=== PATIENT | male | born 1950 | race Caucasian/White ===

== ENCOUNTER 2018-03-30 23:55 | Emergency (ER) | payer MEDICARE, MEDICAID ==
[~2018-03-30] VITALS: Ht 172.7 cm; Wt 72.6 kg
[2018-03-31] VITALS: BP 120/70
--- NOTE | 2018-03-31 | NUR ---
PATIENT BIB WHEELCHAIR TO ER BED 9.
--- NOTE | 2018-03-31 00:05 | NUR ---
APATIENT PRESENTS TO ED WITH C/O ABD PAIN X 1 WEEK. ABD FLAT/ROUND SOFT. BREATH SOUNDS CLEAR BILATERALLY. HEART RATE EVEN/REGULAR. PT AA0X4, USES WHEELCHAIR. PT HAS POOR SKIN TURGOR, TIGHT AND HARDENED. PATIENT POSITIONED FOR COMFORT; HOB ELEVATED; BEDRAILS UP X2; BED DOWN. ER MD MADE AWARE OF PT STATUS. MED HX: HTN
[2018-03-31] MEDS ORDERED: MORPHINE SULFATE 2 MG/ML SYR IVP ONE (00:35)
[2018-03-31] MEDS ORDERED: ONDANSETRON 4 MG/2 ML VIAL IVP ONE (00:35)
[2018-03-31 01:00] LABS: APPEARANCE,URINE CLEAR (CLEAR); BILIRUBIN,URINE NEGATIVE (NEGATIVE); BLOOD, URINE 3+ (NEGATIVE); COLOR,URINE YELLOW (YELLOW); LEUKOCYTE ESTERASE ,URINE NEGATIVE (NEGATIVE); NITRITE, URINE NEGATIVE (NEGATIVE); UGLUCOSE NEGATIVE (NEGATIVE)
--- NOTE | 2018-03-31 01:11 | NUR ---
PER FLOR RED TO GIVE MEDICATION IM. PT HAS POOR PIV ACCESS.
[2018-03-31 01:16] LABS: ANION GAP 10.7 (8-16); CARBON DIOXIDE 27.3 mmol/L (21-32); CREATININE 1.1 mg/dL (0.7-1.3)
[2018-03-31 01:18] LABS: TOTAL BILIRUBIN 0.7 mg/dL (0.0-1.0)
[2018-03-31 01:19] LABS: ALBUMIN 2.8 g/dL (3.4-5.0)
[2018-03-31 01:34] LABS: HEMATOCRIT 41.8 % (36-52); MEAN CORPUSCULAR HEMOGLOBIN 32 pg (27-31); MEAN CORPUSCULAR HGB CONC 34 g/dL (33-37); MEAN CORPUSCULAR VOLUME 96.2 fL (80-94); PLATELET COUNT (AUTO) 170 K/uL (140-450); RED BLOOD CELL COUNT(AUTO) 4.34 MIL/uL (4.20-6.10); RED CELL DISTRIBUTION WIDTH 13.9 % (11.6-13.7); WHITE BLOOD COUNT (AUTO) 4.9 K/uL (4.8-10.8)
[2018-03-31 01:35] LABS: BASOPHILS # (AUTO) 0.2 K/uL (0.00-0.22); BASOPHILS % (AUTO) 4.7 % (0.0-2.0); EOSINOPHILS # (AUTO) 0.3 K/uL (0-0.4); EOSINOPHILS % (AUTO) 6.1 % (0.0-4.0); LYMPHOCYTES # (AUTO) 1.7 K/uL (2.0-11.5); MONOCYTES # (AUTO) 0.5 K/uL (0.8-1.0); MONOCYTES % (AUTO) 9.7 % (1.7-9.3); NEUTROPHILS # (AUTO) 2.2 K/uL (1.8-7.7); NEUTROPHILS % (AUTO) 45.5 % (42.2-75.2)
[2018-03-31 01:41] LABS: HYALINE CASTS, URINE 0-10 /LPF (None Seen); RBC,URINE 11-20 (MOD) /HPF (0-5); WBC,URINE 0-5 (RARE) /HPF (0-5)
--- NOTE | 2018-03-31 02:20 | NUR ---
Patient discharged with v/s stable. Written and verbal after care instructions given and explained. Patient alert, oriented and verbalized understanding of instructions. Wheel Chair Assisted with to home. All questions addressed prior to discharge. ID band removed. Patient advised to follow up with PMD. Rx of ULTRAM, MIRALAX AND REGLAN given. Patient educated on indication of medication including possible reaction and side effects. Opportunity to ask questions provided and answered.
== END 2018-03-31 02:20 | disposition home or self-care (01) ==
LOC: MED 23:55
DX: K59.00 Constipation, unspecified (principal); K80.80 Other cholelithiasis without obstruction; M54.5 Low back pain
CPT/HCPCS: 36415; 74176; 80053; 81001; 83690; 85025; 96372; 99285; J2270; J2405; 96374

== ENCOUNTER 2018-04-26 22:42 | Inpatient (IN) | payer MEDICAID, MEDICARE ==
[~2018-04-26] VITALS: Ht 172.7 cm; Wt 68.0 kg
[2018-04-26 22:48] VITALS: BP 100/63
--- NOTE | 2018-04-26 22:48 | NUR ---
pt ambulated to bed with vss.
--- NOTE | 2018-04-26 22:54 | NUR ---
PT TAKEN TO BED 8
--- NOTE | 2018-04-26 22:55 | NUR ---
ASSUMED CARE OF PT AT THIS TIME. C/O WORSENING CHRONIC, ALL OVER BACK PAIN X 1 WEEK, W/ WEAKNESS AND DECREASED PO INTAKE. NO TRAUMA. AAOX4 WITH EVEN AND STEADY GAIT; PATIENT STATES PAIN OF 10/10; VSS; PATIENT POSITIONED FOR COMFORT; HOB ELEVATED; BEDRAILS UP X2; BED DOWN. ER MD MADE AWARE OF PT STATUS. WILL CONTINUE TO MONITOR.
--- NOTE | 2018-04-26 23:08 | NUR ---
Dr. Collier evaluating patient at bedside.
[2018-04-26] MEDS ORDERED: NACL 0.9% 1,000 ML IV ONE (23:15)
[2018-04-26] MEDS ORDERED: ONDANSETRON 4 MG/2 ML VIAL IVP ONE (23:20)
[2018-04-27 00:09] LABS: HEMATOCRIT 48.8 % (36-52); HEMOGLOBIN 16.3 g/dL (12.0-18.0); MEAN CORPUSCULAR HEMOGLOBIN 32 pg (27-31); MEAN CORPUSCULAR HGB CONC 33 g/dL (33-37); MEAN CORPUSCULAR VOLUME 96.1 fL (80-94); RED BLOOD CELL COUNT(AUTO) 5.08 MIL/uL (4.20-6.10); RED CELL DISTRIBUTION WIDTH 14.5 % (11.6-13.7)
[2018-04-27 00:15] LABS: ANION GAP 12.3 (8-16); CREATININE 1.3 mg/dL (0.7-1.3); POTASSIUM 3.3 mmol/L (3.5-5.1)
[2018-04-27] MEDS ORDERED: ONDANSETRON 4 MG/2 ML VIAL IM ONE (00:15)
[2018-04-27 00:22] LABS: ALBUMIN 3.2 g/dL (3.4-5.0); TOTAL BILIRUBIN 1.4 mg/dL (0.0-1.0)
[2018-04-27 00:25] LABS: PLATELET COUNT (AUTO) 98 K/uL (140-450); WHITE BLOOD COUNT (AUTO) 25.7 K/uL (4.8-10.8)
[2018-04-27 00:28] LABS: LYMPHOCYTES % (MANUAL) 5 % (20-46); METAMYELOCYTES % 2 % (0-0); MYELOCYTES % 1 % (0-0)
[2018-04-27 00:32] LABS: PROTHROMBIN TIME 13.8 secs (10.8-13.4)
[2018-04-27] MEDS ORDERED: fentaNYL 0.05 MG/ML VIAL IM ONE (00:40)
[2018-04-27] MEDS: NACL 0.9% 1,000 ML IV SCH ×2 (01:07→14:12)
[2018-04-27] MEDS ORDERED: ZOLPIDEM 5 MG TAB PO PRN (01:10)
[2018-04-27] MEDS ORDERED: LEVOFLOXACIN 500 MG TAB PO ONE (01:10)
[2018-04-27] MEDS ORDERED: ACETAMINOPHEN 325 MG TAB PO PRN (01:10)
[2018-04-27 01:40] LABS: FREE T4 (FREE THYROXINE) 1.39 ng/dL (0.76-1.46); MAGNESIUM 1.4 mg/dL (1.8-2.4); PHOSPHORUS 2.6 mg/dL (2.5-4.9); THYROID STIMULATING HORMONE 2.05 uIU/mL (0.34-3.74)
--- NOTE | 2018-04-27 01:40 | NUR ---
Patient will be admitted to care of [facility]. Admitted to TELE. Will go to room 120A. Belongings list completed. Report to MAUDE OZUNA.
--- NOTE | 2018-04-27 02:00 | NUR ---
RECEIVED FROM ER PER SAMANTHA AWAKE AND ALERT. ABLE TO VERBALIZE SIMPLE NEEDS . DX. OF LEUKOCYTOSIS. CAN MOVE ALL EXTREMITIES BUT STATED HE IS VERY WEAK. USES WHEELCHAIR IN GOING PLACES. LIVES WITH SON [place] . PT. STATED HE HAS THIS CHRONIC BACK PAIN EVER SINCE HE HAD RIB INFECTION. SKIN INTACT. NO EDEMA NOTED. AFEBRILE. TELEMETRY MONITORING. CARE PLANS FOR THE NIGHT DISCUSSED WITH HIM. CALL LIGHT AT BEDSIDE AND ORIENTED PT. TO IT'S USE. RAPID RESPONSE EXPLAINED TO PT. HISTORY OF HEROIN USE .
[2018-04-27 02:14] VITALS: BP 110/72
--- NOTE | 2018-04-27 02:33 | NUR ---
LACTIC ACID 2.8 REPORTED CRITICAL VALUE BY MANAGER INSPECTION TO CHARGE NURSE . REPORTED BY CHARGE NURSE TO RESIDENT MD NAYAK. NO FURTHER ORDERS GIVEN.
--- NOTE | 2018-04-27 02:42 | NUR ---
PT. HAS NO IVF SITE AT THIS TIME RT ER STAFF UNABLE TO INSERT RT HX. NEEDLE PRICKS FROM CONSTANT USE OF HEROIN INJECTABLE. VEINS SCLEROSED. FOR PICC LINE IN A.M. PER ER REPORT.
[2018-04-27] MEDS ORDERED: MAGNESIUM OXIDE 400 MG TAB PO SCH (03:30)
[2018-04-27] MEDS ORDERED: POTASSIUM CHLORIDE 10 MEQ TABER PO SCH (03:30)
--- NOTE | 2018-04-27 04:10 | NUR ---
PT. SLEEPING WELL. USES URINAL TO URINATE. CALL LIGHT WITH IN REACH. TELEMETRY MONITORING.
[2018-04-27 04:29] LABS: HEMOGLOBIN 14.8 g/dL (12.0-18.0); MEAN CORPUSCULAR HEMOGLOBIN 32 pg (27-31); MEAN CORPUSCULAR HGB CONC 34 g/dL (33-37); MEAN CORPUSCULAR VOLUME 95.6 fL (80-94); PLATELET COUNT (AUTO) 106 K/uL (140-450); RED CELL DISTRIBUTION WIDTH 14.1 % (11.6-13.7); WHITE BLOOD COUNT (AUTO) 24.4 K/uL (4.8-10.8)
[2018-04-27 04:44] LABS: CARBON DIOXIDE 25.8 mmol/L (21-32); CREATININE 1.2 mg/dL (0.7-1.3); POTASSIUM 3.8 mmol/L (3.5-5.1)
[2018-04-27 04:50] LABS: CHOL/HDL RATIO 2.2 (1-4.5)
--- NOTE | 2018-04-27 05:50 | NUR ---
URINE SPECIMEN SENT TO LAB FOR DRUG TEST AND URINE PROFILE.
[2018-04-27 06:16] LABS: LYMPHOCYTES % (MANUAL) 8 % (20-46); MONOCYTES % (MANUAL) 5 % (5-12)
--- NOTE | 2018-04-27 07:15 | NUR ---
RECEIVED PATIENT REPORT. PATIENT ASLEEP BUT AROUSABLE. NO S/S OF DISTRESS NOTED. PATIENT ON TELE MONITORING. BED LOWERED WITH CALL LIGHT WITHIN REACH. WILL CONTINUE TO MONITOR
--- NOTE | 2018-04-27 07:33 | NUR ---
PT. ENDORSED TO THE NEXT RN FOR CONTINUITY OF CARE. SLEEPING. WAKES UP EASILY WHEN CALLED BY NAME. CALL LIGHT WITH IN REACH AT ALL TIMES. NO SOB. FOR PICC LINE INSERTION TODAY. ABSENCE MANAGEMENT CONSULTANT MADE AWARE.
[2018-04-27 07:38] LABS: BILIRUBIN,URINE NEGATIVE (NEGATIVE); COLOR,URINE ORANGE (YELLOW); LEUKOCYTE ESTERASE ,URINE NEGATIVE (NEGATIVE); NITRITE, URINE NEGATIVE (NEGATIVE); PH,URINE 5.5 (5.0-9.0); UGLUCOSE NEGATIVE (NEGATIVE)
[2018-04-27 08:00] VITALS: BP 100/65
[2018-04-27 08:02] LABS: APPEARANCE,URINE SLIGHTLY HAZY (CLEAR)
[2018-04-27 08:03] LABS: RBC,URINE 3-10 (FEW) /HPF (0-5); WBC,URINE 0-5 (RARE) /HPF (0-5)
[2018-04-27 08:04] LABS: BLOOD, URINE 2+ (NEGATIVE)
[2018-04-27 08:16] LABS: BARBITURATE, URINE NEG. ng/ml (NEG <=200); BENZODIAZEPINE, URINE NEG. ng/mL (NEG <=200); CANNABINOID, URINE NEG. ng/mL (NEG <=50); COCAINE, URINE NEG. ng/mL (NEG <=300); OPIATE, URINE POS. ng/mL (NEG <=2000); PHENCYCLIDINE SCREEN,URINE NEG. ng/mL (NEG <=25)
[2018-04-27] MEDS ORDERED: VANCOMYCIN PER PHARMACY MC PRN (08:30)
--- NOTE | 2018-04-27 08:30 | NUR ---
ASSISTED PATIENT TO THE BATHROOM. PATIENT WHEELED IN HIS WHEELCHAIR. PATIENT HAD A BM. STOOL WAS LOOSE AND MODERATE IN AMOUNT. PATIENT ASSISTED BACK TO BED. NO S/S OF DISTRESS NOTED
--- NOTE | 2018-04-27 08:41 | NUR ---
PATIENT HAS BEEN SCREENED AND CATEGORIZED HIGH NUTRITION RISK. PATIENT WILL BE SEEN WITHIN 1-2 DAYS OF ADMISSION. 04/27/18 04/28/[address]
[2018-04-27] MEDS: DOCUSATE SODIUM 100 MG GELCAP PO SCH ×2 (09:00→20:43)
[2018-04-27] MEDS ORDERED: SULFAMETH/TRIMETH 400/80MG 1 TAB PO SCH (09:00)
[2018-04-27] MEDS: LACTOBACILLUS RHAMNOSUS GG 1 EACH CAP PO SCH (09:07)
[2018-04-27] MEDS ORDERED: VANCOMYCIN 750 MG in DEXTROSE 5% 250 ML IV SCH (11:00)
[2018-04-27 12:00] VITALS: BP 95/66
--- NOTE | 2018-04-27 13:29 | NUR ---
CM NOTE INITIAL REVIEW FAXED TO [facility] [phone] PH# [phone] AND PREFERRED [facility] [phone] PH# [phone] OPT 1
[2018-04-27] MEDS: VANCOMYCIN 750 MG in DEXTROSE 5% 250 ML IV SCH (14:12)
--- NOTE | 2018-04-27 14:30 | NUR ---
PATIENT ASLEEP IN BED. NO S/S OF DISTRESS NOTED
--- NOTE | 2018-04-27 15:16 | NUR ---
04/27/18 RD INITIAL ASSESSMENT COMPLETED PLEASE REFER TO NUTRITION ASSESSMENT UNDER CARE ACTIVITY FOR ESTIMATED NUTRITIONAL NEEDS. 1. CONTINUE REGULAR DIET TOLERATED. 2. RECOMMEND ENSURE CLEAR TID. 3. NUTRITION EDUCATION PROVIDED TO PT ON HIGH CALORIE/FAT DIET. 4. RD TO FOLLOW-UP 2-3 DAYS, HIGH RISK. RADHA CRAWFORD RD
[2018-04-27 16:00] VITALS: BP 102/63
--- NOTE | 2018-04-27 16:02 | NUR ---
PATIENT ASLEEP IN BED. NO S/S OF DISTRESS NOTED
--- NOTE | 2018-04-27 19:20 | NUR ---
PATIENT REPORT GIVEN AT BEDSIDE. PATIENT ENDORSED IN STABLE CONDITION
--- NOTE | 2018-04-27 19:20 | NUR ---
RECEIVED BEDSIDE REPORT FROM MAUDE MORRELL, PT RESTING IN BED, WC AT BEDSIDE, PICC IN UPPER RIGHT ARM INFUSING NS AT 10 ML/HR, DRESSING INTACT. PT STATED "I FEEL SICK". WHEN ASKED PT TO DESCRIBE HOW HE IS FEELING, PT STATES "LIKE I NEED A FIX". WILL MEDICATE ACCORDING TO MD ORDER WILL CONTINUE TO MONITOR. CALL LIGHT WITHIN REACH.
[2018-04-27 20:00] VITALS: BP 107/71
[2018-04-27] MEDS: HYDROcodone/APAP 7.5/325 MG 1 TAB PO PRN (20:43)
[2018-04-27] MEDS: LEVOFLOXACIN 500 MG/D5W PREMIX 100 ML IV SCH (21:00)
--- NOTE | 2018-04-27 21:30 | NUR ---
PT STATES HE DOES NOT WANT ANY DUE ANTIBIOTICS UNTIL HE FEELS BETTER. WILL HOLD DUE ANTIBIOTICS.
--- NOTE | 2018-04-27 21:49 | NUR ---
PT LEFT TO HAVE XRAY. PT STABLE.
[2018-04-27] MEDS: ONDANSETRON 4 MG/2 ML VIAL IVP PRN (21:58)
--- NOTE | 2018-04-27 22:07 | NUR ---
PT REFUSED XRAY. PT BROUGHT BACK TO UNIT. Addendum: 04/27/18 at 2210 by Joelle Frey RN PT STATES HE IS HAVING WITHDRAW SYMPTOMS. MEDICATED WITH ZOFRAN FOR NAUSEA.
--- NOTE | 2018-04-27 22:07 | NUR ---
SPOKE WITH DR NAYAK ABOUT PT HAVING WITHDRAW SYMPTOMS, WILL PUT IN ORDERS. WILL FOLLOW WITH MD ORDER.
[2018-04-27] MEDS: cloNIDine 0.1 MG TAB PO PRN (22:22)
--- NOTE | 2018-04-27 23:56 | NUR ---
PT SLEEPING, PT GAVE PERMISSION TO GIVE DUE ANTIBIOTIC.
[2018-04-28] VITALS: BP 102/70
--- NOTE | 2018-04-28 00:33 | NUR ---
EDUCATION PROVIDED ON NEEDED STOOL AND SPUTUM SAMPLE, PT STATED "NOT RIGHT NOW. CANT YOU SEE IM TRYING TO REST". WILL CONTINUE TO MONITOR.
--- NOTE | 2018-04-28 02:40 | NUR ---
PT SLEEPING IN BED NO SIGNS OF DISTRESS, WILL CONTINUE TO MONITOR.
[2018-04-28] MEDS: VANCOMYCIN 750 MG in DEXTROSE 5% 250 ML IV SCH ×2 (03:40→14:29)
[2018-04-28] MEDS: ONDANSETRON 4 MG/2 ML VIAL IVP PRN ×2 (03:40→19:37)
[2018-04-28] MEDS: HYDROcodone/APAP 7.5/325 MG 1 TAB PO PRN ×2 (03:40→21:27)
[2018-04-28 04:00] VITALS: BP 100/62
--- NOTE | 2018-04-28 04:00 | NUR ---
PT C/O PAIN AND FEELING NAUSEOUS, MEDICATED ACCORDING TO MD ORDER.
--- NOTE | 2018-04-28 05:42 | NUR ---
CONSENT FOR HIV SCREEN SIGNED AND IN CHART.
[2018-04-28 06:03] LABS: BASOPHILS % (AUTO) 0.2 % (0.0-2.0); EOSINOPHILS # (AUTO) 0.2 K/uL (0-0.4); EOSINOPHILS % (AUTO) 1.6 % (0.0-4.0); HEMATOCRIT 32.8 % (36-52); LYMPHOCYTES # (AUTO) 1.9 K/uL (2.0-11.5); LYMPHOCYTES % (AUTO) 12.9 % (20.5-51.1); MEAN CORPUSCULAR HEMOGLOBIN 32 pg (27-31); MEAN CORPUSCULAR HGB CONC 34 g/dL (33-37); MEAN CORPUSCULAR VOLUME 96.7 fL (80-94); MONOCYTES # (AUTO) 0.8 K/uL (0.8-1.0); MONOCYTES % (AUTO) 5.2 % (1.7-9.3); NEUTROPHILS # (AUTO) 11.8 K/uL (1.8-7.7); NEUTROPHILS % (AUTO) 80.1 % (42.2-75.2); PLATELET COUNT (AUTO) 90 K/uL (140-450); RED BLOOD CELL COUNT(AUTO) 3.39 MIL/uL (4.20-6.10); RED CELL DISTRIBUTION WIDTH 14.1 % (11.6-13.7); WHITE BLOOD COUNT (AUTO) 14.8 K/uL (4.8-10.8)
[2018-04-28 06:11] LABS: ANION GAP 7.9 (8-16); CARBON DIOXIDE 25.5 mmol/L (21-32); CREATININE 0.9 mg/dL (0.7-1.3); POTASSIUM 3.4 mmol/L (3.5-5.1)
[2018-04-28 07:26] LABS: MAGNESIUM 1.5 mg/dL (1.8-2.4); PHOSPHORUS 1.6 mg/dL (2.5-4.9)
--- NOTE | 2018-04-28 07:39 | NUR ---
ENDORSED PT TO DAY SHIFT NURSE, PT STABLE
--- NOTE | 2018-04-28 07:40 | NUR ---
RECEIVED REPORT FROM THE PONY CYLINDER PRESS OPERATOR NURSE AT BEDSIDE FOR CONTINUITY OF CARE. PT IS AWAKE AND ORIENTED. INTRODUCED MYSELF AND UPDATED THE BOARD. PT NEEDS TO GO TO THE BATHROOM. DISCONNECTED FROM THE IV. PT, BY HIMSELF GOT OUT OF BED AND INTO HIS WHEELCHAIR. WHEELED HIMSELF TO THE BATHROOM. NEEDED A STOOL SAMPLE. EDUCATED PT ABOUT USING THE HAT AND NOT FLUSHING. PT VERBALIZED UNDERSTANDING. PT CAME BACK AND SAT IN HIS WHEELCHAIR WHILE DOING VITALS. BP LOW, ATTEMPTED TWICE. O2 SATURATION AT 89-90% MULTIPLE SCABS ON THE EXTREMITIES...TRACK AHUMADA. PICC LINE ON R UA NS AT 10ML. TODAY MAG IS LOW AND PHOS IS LOW. WILL NOTIFY MD. REQUESTED A SPUTUM SAMPLE. SAMPLE WAS GIVEN. SENT STOOL SAMPLE (VERY LITTLE) AND SPUTUM SAMPLE TO THE LAB. PT SITTING AND EATING BREAKFAST.
[2018-04-28 08:00] VITALS: BP 93/52
--- NOTE | 2018-04-28 08:49 | NUR ---
SPOKE TO DR JIMENEZ REGARDING CDIFF ORDER. PER CHARGE NURSE, PT HAD 2 DOSES OF VANCO AND 1 DOSE LEVAQUIN. WILL GIVE FALSE POSITIVE. CALLED LAB TO HOLD THE CDIFF ORDER AND SEND STOOL FOR CULTURE. NOTIFIED MD OF LOW MAG AND LOW PHOS. WILL AWAIT ORDERS.
[2018-04-28] MEDS ORDERED: POTASSIUM CHLORIDE 10 MEQ TABER PO SCH (08:50)
[2018-04-28] MEDS ORDERED: MAG SULF 2000 MG/WATER PREMIX 50 ML IV ONE (08:50)
[2018-04-28] MEDS ORDERED: SODIUM PHOS / POTASSIUM PHOS 1 PKT PDR PO SCH (08:58)
[2018-04-28] MEDS: DOCUSATE SODIUM 100 MG GELCAP PO SCH ×2 (09:00→20:23)
[2018-04-28] MEDS: LACTOBACILLUS RHAMNOSUS GG 1 EACH CAP PO SCH (09:10)
--- NOTE | 2018-04-28 09:19 | NUR ---
ADMINISTERED MORNING MEDS INCLUDING MAG RIDER. HELD COLACE, PT HAS DIARRHEA. PT TOLERATED WELL. PT IS BACK IN BED. NO SIGNS OF DISTRESS. WILL CONTINUE TO MONITOR PT.
--- NOTE | 2018-04-28 10:30 | NUR ---
FRIENDS ARE IN THE ROOM VISITING. NO SIGNS OF DISTRESS. WILL CONTINUE TO MONITOR PT.
--- NOTE | 2018-04-28 11:16 | NUR ---
CM NOTE CONCURRENT REVIEW FAXED TO [facility] [phone] PH# [phone] AND PREFERRED [facility] [phone] PH# [phone] OPT 1 Addendum: 04/28/18 at 1133 by Rochelle Venegas CM [facility] PH# [phone]
--- NOTE | 2018-04-28 11:20 | NUR ---
TOOK ANOTHER STOOL SAMPLE TO THE LAB.
[2018-04-28 12:00] VITALS: BP 97/56
[2018-04-28] MEDS: SODIUM PHOS / POTASSIUM PHOS 1 PKT PDR PO SCH ×2 (12:20→16:28)
--- NOTE | 2018-04-28 12:56 | NUR ---
DISCONNECT PT FROM IV. PT WENT TO THE BATHROOM AND BACK. DR JIMENEZ WAS IN THE ROOM EXPLAINING TO PT WHY PT CAN'T GO HOME JUST YET. STILL NEED IV ABX. PT VERBALIZED UNDERSTANDING.
--- NOTE | 2018-04-28 14:38 | NUR ---
STARTED VANCO. CONFIRMED WITH PHARMACIST, OK TO GIVE. VANCO TROUGH WAS DONE THIS MORNING. PER PHARMACIST OK TO GIVE. PT TOLERATING WELL. WILL CONTINUE TO MONITOR PT.
[2018-04-28 16:00] VITALS: BP 100/59
--- NOTE | 2018-04-28 16:30 | NUR ---
PT WANTED HIS FLUIDS D/C'D. REFUSED IVF. MAKES HIM GO TO THE BATHROOM TOO MUCH PER PT. EXPLAINED TO PT, HE IS ONLY GETTING 10ML/HR JUST FOR TKO. HE STILL WANTED OFF SO HE CAN FREELY GO TO THE BATHROOM.
--- NOTE | 2018-04-28 17:38 | NUR ---
CHECKED ON PT. PT WAS IN THE BATHROOM. WILL CHECK ON PT LATER.
--- NOTE | 2018-04-28 18:58 | NUR ---
ENDORSED PT TO THE CALENDER INSPECTOR NURSE AT BEDSIDE FOR CONTINUITY OF CARE. PT IN STABLE CONDITION.
--- NOTE | 2018-04-28 18:58 | NUR ---
RECEIVED BEDSIDE REPORT FROM DAY SHIFT NURSE TEE, PT AWAKE AND ALERT SITTING IN WC, SON AND FRIEND AT BEDSIDE, PT CLAIMS HE IS COMFORTABLE AT THIS TIME, V/S TAKEN ALL WITHIN PTS BASELINE, UPDATED BOARD EXPLAINED PLAN OF CARE WILL CONTINUE TO MONITOR.
--- NOTE | 2018-04-28 19:30 | NUR ---
PICC INFUSING NS AT 10 ML/HR, PT REQUESTED TO BE DISCONNECTED TO GO TO BATHROOM, WILL RECONNECT PT AFTER.
[2018-04-28] MEDS: cloNIDine 0.1 MG TAB PO PRN (19:37)
--- NOTE | 2018-04-28 19:37 | NUR ---
PT C/O FEELING NAUSEOUS, MEDICATED WITH ZOFRAN ACCORDING TO MD ORDER.
--- NOTE | 2018-04-28 19:37 | NUR ---
PT C/O FEELING ANXIOUS, MEDICATED WITH CLONIDINE ACCORDING TO MD ORDER. WILL CONTINUE TO MONITOR.
[2018-04-28 20:00] VITALS: BP 110/59
--- NOTE | 2018-04-28 20:23 | NUR ---
HELD COLACE D/T PT C/O LOOSE STOOL.
[2018-04-28] MEDS: LEVOFLOXACIN 500 MG/D5W PREMIX 100 ML IV SCH (21:27)
--- NOTE | 2018-04-28 21:27 | NUR ---
PT C/O OF PAIN 04/15. REPOSITIONED FOR COMFORT, MEDICATED ACCORDING TO MD ORDER.
[2018-04-29] VITALS: BP 104/55
[2018-04-29] MEDS: HYDROcodone/APAP 7.5/325 MG 1 TAB PO PRN ×2 (01:34→17:11)
[2018-04-29] MEDS: NACL 0.9% 1,000 ML IV SCH (01:34)
--- NOTE | 2018-04-29 01:34 | NUR ---
PT C/O PAIN, MEDICATED ACCORDING TO MD ORDER.
[2018-04-29] MEDS: VANCOMYCIN 750 MG in DEXTROSE 5% 250 ML IV SCH ×2 (03:44→14:55)
[2018-04-29 04:00] VITALS: BP 99/56
--- NOTE | 2018-04-29 04:30 | NUR ---
PT RESTING IN BED NO SIGNS OF DISTRESS.
[2018-04-29 06:18] LABS: BASOPHILS # (AUTO) 0.1 K/uL (0.00-0.22); BASOPHILS % (AUTO) 0.6 % (0.0-2.0); EOSINOPHILS # (AUTO) 0.5 K/uL (0-0.4); EOSINOPHILS % (AUTO) 5.2 % (0.0-4.0); HEMATOCRIT 38.6 % (36-52); HEMOGLOBIN 13.1 g/dL (12.0-18.0); LYMPHOCYTES # (AUTO) 2.1 K/uL (2.0-11.5); LYMPHOCYTES % (AUTO) 20.3 % (20.5-51.1); MEAN CORPUSCULAR HEMOGLOBIN 33 pg (27-31); MEAN CORPUSCULAR HGB CONC 34 g/dL (33-37); MEAN CORPUSCULAR VOLUME 96.1 fL (80-94); MONOCYTES # (AUTO) 0.6 K/uL (0.8-1.0); NEUTROPHILS # (AUTO) 7.1 K/uL (1.8-7.7); NEUTROPHILS % (AUTO) 67.9 % (42.2-75.2); PLATELET COUNT (AUTO) 108 K/uL (140-450); RED BLOOD CELL COUNT(AUTO) 4.02 MIL/uL (4.20-6.10); WHITE BLOOD COUNT (AUTO) 10.5 K/uL (4.8-10.8)
[2018-04-29] MEDS: SODIUM PHOS / POTASSIUM PHOS 1 PKT PDR PO SCH ×3 (06:55→17:05)
[2018-04-29 07:02] LABS: ANION GAP 10.6 (8-16); CARBON DIOXIDE 25.4 mmol/L (21-32); CREATININE 0.8 mg/dL (0.7-1.3)
[2018-04-29 07:10] LABS: MAGNESIUM 1.6 mg/dL (1.8-2.4)
--- NOTE | 2018-04-29 07:17 | NUR ---
PT REFUSED DUE MEDICATION, WILL HOLD. ENDORSED PT TO DAY SHIFT NURSE, PT STABLE.
--- NOTE | 2018-04-29 07:18 | NUR ---
RECEIVED REPORT FROM THE ATTENDANT CAMPGROUND NURSE AT BEDSIDE FOR CONTINUITY OF CARE. PT SLEEPING WITH THE BLANKET OVER HIS HEAD. V/S STILL LOW 87/62, HR 51. AFEBRILE. O2 SAT AT 96%. SKIN INTACT. PICC LINE ON R UA SL. PT WOKE UP, INTRODUCED MYSELF AND UPDATED THE BOARD. PT WOULD LIKE TO GO HOME TODAY. WILL LET MD KNOW. WILL CONTINUE TO MONITOR PT.
[2018-04-29 08:00] VITALS: BP 87/62
[2018-04-29] MEDS: DOCUSATE SODIUM 100 MG GELCAP PO SCH ×2 (09:00→20:31)
[2018-04-29] MEDS: LACTOBACILLUS RHAMNOSUS GG 1 EACH CAP PO SCH (09:08)
--- NOTE | 2018-04-29 09:11 | NUR ---
ADMINISTERED MORNING MED. HELD COLACE. PT HAS BEEN HAVING DIARRHEA. PT TOLERATED WELL. WILL CONTINUE TO MONITOR PT.
--- NOTE | 2018-04-29 11:45 | NUR ---
PT RESTING. NO SIGNS OF DISTRESS. WILL CONTINUE TO MONITOR PT.
--- NOTE | 2018-04-29 11:53 | NUR ---
CM NOTE CONCURRENT REVIEW FAXED TO [facility] [phone] PH# [phone] AND PREFERRED [facility] [phone] PH# [phone] OPT 1, PREFERRED [facility] PH# [phone]
[2018-04-29] MEDS ORDERED: MAG SULF 2000 MG/WATER PREMIX 50 ML IV ONE (11:55)
[2018-04-29 12:00] VITALS: BP 84/55
[2018-04-29] MEDS: MAGNESIUM SULFATE 1GM in DEXTROSE 5% 100 ML PREMIX IV SCH ×2 (12:14→13:05)
--- NOTE | 2018-04-29 14:45 | NUR ---
FINISHED BOTH BAGS OF MAG RIDER. PT TOLERATED WELL. D/C'D IV. FAMILY VISITING. WILL AWAIT VANCO TROUGH RESULTS FOR VANCO ADMINISTRATION.
--- NOTE | 2018-04-29 15:02 | NUR ---
STARTED THE SURESHO. OK TO PROCEED PER PHARMACIST. WILL CONTINUE TO MONITOR PT.
[2018-04-29 16:00] VITALS: BP 86/58
[2018-04-29] MEDS ORDERED: POTASSIUM PHOSPHATE 15 MM in NACL 0.9% 250 ML IV SCH (16:00)
--- NOTE | 2018-04-29 16:28 | NUR ---
RECEIVED CRITICAL LAB C-DIFF FROM LAB [id number] DR CHAVARRIA , ISOLATE PATIENT WILL F/U WITH NEW ORDER
--- NOTE | 2018-04-29 16:37 | NUR ---
MOVED PT TO A PRIVATE ROOM IN 115. CONTACT ISO SIGN UP. BLEACH PRECAUTION SIGN UP. PT BACK ON THE VANCO. WILL CONTINUE TO MONITOR PT.
--- NOTE | 2018-04-29 17:15 | NUR ---
STARTED KRIDER, ADMINISTERED NEUTRA PHOS, AND NORCO FOR PAIN. PAIN LEVEL 6/10. PT TOLERATED WELL. PT SITTING IN THE WHEELCHAIR, WATCHING THE NEWS. WILL CONTINUE TO MONITOR PT.
--- NOTE | 2018-04-29 18:58 | NUR ---
PT FAMILY HERE. EXPLAINED THE CONTACT ISO. GOWNING UP AND WASHING HANDS WITH SOAP AND WATER, BLEACH ON SURFACES. EDUCATED FAMILY THAT PT CAME WITH IT. HOUSE SHOULD BE CLEANED WELL WITH BLEACH. FREQUENT HAND WASHING WITH SOAP AND WATER. FAMILY VERBALIZED UNDERSTANDING. PT WANTED TO BE DC'D FROM IV TO GO TO THE BATHROOM. DID SO. WILL CONTINUE TO MONITOR PT.
--- NOTE | 2018-04-29 19:20 | NUR ---
ENDORSED PT TO THE SAS DEVELOPER NURSE AT BEDSIDE FOR CONTINUITY OF CARE. PT IS IN STABLE CONDITION.
--- NOTE | 2018-04-29 19:21 | NUR ---
RECEIVED PATIENT AWAKE SITTING IN THE WHEELCHAIR. PATIENT VERBALLY CONVERSANT, COOPERATIVE. EXPLAIN PLAN OF CARE AND VERBALIZED UNDERSTANDING. FALL PRECAUTION APPLIED. CALL LIGHT WITHIN REACH. WILL CONTINUE TO MONITOR.
[2018-04-29 20:00] VITALS: BP 86/54
[2018-04-29] MEDS: metroNIDAZOLE 500 MG/NS PREMIX 100 ML IV SCH (20:30)
--- NOTE | 2018-04-29 21:05 | NUR ---
V/S TAKEN AND RECORDED. SCHEDULE MEDICATION GIVEN TOLERATED WELL. NO S/S OF DISTRESS NOTED AT THIS TIME. FALL PRECAUTION APPLIED. CALL LIGHT WITHIN REACH. WILL CONTINUE TO MONITOR.
[2018-04-29] MEDS ORDERED: WATER STERILE 20 ML MC ONE (23:40)
[2018-04-29] MEDS: VANCOMYCIN 500 MG VIAL PO SCH (23:48)
[2018-04-30] VITALS: BP 108/67
--- NOTE | 2018-04-30 00:05 | NUR ---
V/S TAKEN AND RECORDED. SCHEDULE MEDICATION GIVEN TOLERATED WELL. FALL PRECAUTION APPLIED. CALL LIGHT WITHIN REACH. NO S/S OF DISTRESS NOTED AT THIS TIME. WILL CONTINUE TO MONITOR.
[2018-04-30] MEDS: NACL 0.9% 1,000 ML IV SCH (01:07)
--- NOTE | 2018-04-30 02:15 | NUR ---
SEEN PATIENT ASLEEP COMFORTABLE ON BED.FALL PRECAUTION APPLIED. NO S/S OF DISTRESS NOTED AT THIS TIME. CALL LIGHT WITHIN REACH. WILL CONTINUE TO MONITOR.
[2018-04-30 04:00] VITALS: BP 89/58
[2018-04-30] MEDS: metroNIDAZOLE 500 MG/NS PREMIX 100 ML IV SCH ×2 (04:27→13:03)
--- NOTE | 2018-04-30 04:45 | NUR ---
SEEN PATIENT AWAKE WATCHING TV. V/S TAKEN AND RECORDED. SCHEDULE MEDICATION TOLERATED WELL. NO S/S OF DISTRESS NOTED AT THIS TIME. WILL CONTINUE TO MONITOR.
[2018-04-30] MEDS: VANCOMYCIN 500 MG VIAL PO SCH ×3 (06:46→17:01)
[2018-04-30] MEDS: SODIUM PHOS / POTASSIUM PHOS 1 PKT PDR PO SCH ×3 (06:52→16:50)
[2018-04-30 07:16] LABS: BASOPHILS # (AUTO) 0.1 K/uL (0.00-0.22); BASOPHILS % (AUTO) 0.7 % (0.0-2.0); EOSINOPHILS # (AUTO) 0.3 K/uL (0-0.4); EOSINOPHILS % (AUTO) 4.6 % (0.0-4.0); HEMATOCRIT 38.3 % (36-52); LYMPHOCYTES # (AUTO) 1.9 K/uL (2.0-11.5); LYMPHOCYTES % (AUTO) 24.5 % (20.5-51.1); MEAN CORPUSCULAR HEMOGLOBIN 32 pg (27-31); MEAN CORPUSCULAR HGB CONC 34 g/dL (33-37); MEAN CORPUSCULAR VOLUME 95.7 fL (80-94); MONOCYTES # (AUTO) 0.6 K/uL (0.8-1.0); MONOCYTES % (AUTO) 8.2 % (1.7-9.3); NEUTROPHILS # (AUTO) 4.7 K/uL (1.8-7.7); PLATELET COUNT (AUTO) 121 K/uL (140-450); RED CELL DISTRIBUTION WIDTH 14.1 % (11.6-13.7); WHITE BLOOD COUNT (AUTO) 7.6 K/uL (4.8-10.8)
--- NOTE | 2018-04-30 07:35 | NUR ---
ENDORSEMENT GIVEN TO AM SHIFT NURSE AT BEDSIDE FOR CONTINUITY OF CARE. PATIENT IN STABLE CONDITION.
--- NOTE | 2018-04-30 07:37 | NUR ---
RECEIVED REPORT FROM LIEUTENANT FIRE FIGHTER RN. PT SITTING IN WHEELCHAIR. VERBAL. A/O X4. SKIN DRY AND WARM TO TOUCH. LUNGS CLEAR. S1S2 HEARD. ACTIVE BOWEL SOUND. ABDOMEN SOFT, ROUND AND NON-TENDER. RIGHT PICC LINE DOUBLE LUMEN NOTED. BLOOD NOTED ON PURPLE LINE UNABLE TO FLUSH. SECOND LINE IS OKAY. SKIN INTACT. WILL CONTINUE TO MONITOR.
[2018-04-30 07:46] LABS: ANION GAP 9.2 (8-16); CARBON DIOXIDE 24.7 mmol/L (21-32); CREATININE 0.8 mg/dL (0.7-1.3)
[2018-04-30 07:54] LABS: POTASSIUM 2.9 mmol/L (3.5-5.1)
[2018-04-30 08:00] VITALS: BP 110/71
--- NOTE | 2018-04-30 08:03 | NUR ---
DR. ALSTON MADE AWARE OF LOW POTASSIUM 2.9 AND CLOGGED ON LUMEN OF RIGHT PICC LINE: PURPLE ONE. SAID OK.
[2018-04-30] MEDS ORDERED: POTASSIUM PHOSPHATE 15 MM in NACL 0.9% 250 ML IV SCH (08:10)
[2018-04-30 08:30] LABS: MAGNESIUM 1.7 mg/dL (1.8-2.4); PHOSPHORUS 2.9 mg/dL (2.5-4.9)
[2018-04-30] MEDS: DOCUSATE SODIUM 100 MG GELCAP PO SCH (08:42)
[2018-04-30] MEDS: LACTOBACILLUS RHAMNOSUS GG 1 EACH CAP PO SCH (08:48)
[2018-04-30] MEDS: HYDROcodone/APAP 7.5/325 MG 1 TAB PO PRN ×2 (08:56→14:46)
--- NOTE | 2018-04-30 08:59 | NUR ---
PT REFUSED TO BE ON IVF ON. RISK AND BENEFITS OF ADMINISTERING IVF EXPLAINED TO PT VERBALIZED UNDERSTANDING. STILL DOES NOT WANT TO BE ON IVF. SAID HE IS DONE WITH HIS MEDICATION. SAID "I AM LEAVING". REASSURED PT AND PROVIDED PSYCHOLOGICAL SUPPORT. REFUSED TO BE ASSISTED TO GO ON BED. SAID I CAN GO MY SELF IN BED.
--- NOTE | 2018-04-30 09:09 | NUR ---
04/30/18 RD FOLLOW UP COMPLETED PLEASE REFER TO NUTRITION ASSESSMENT UNDER CARE ACTIVITY FOR ESTIMATED NUTRITIONAL NEEDS. 1. CONTINUNE REGULAR DIET TOLERATED. 2. CONTINUE ON ENSURE CLEAR TID TOLERATED. 3. RD TO FOLLOW-UP 3-5 DAYS, MODERATE RISK. PAUL JULES, MS, RDN
[2018-04-30 12:00] VITALS: BP 101/61
--- NOTE | 2018-04-30 13:23 | NUR ---
RESPONDED TO PT CALL. PT REQUESTED TO UNHOOK THE IV MEDS AND SAID "I WILL NOT LET YOU HOOK THIS IV MEDS AGAIN. YOU GUYS ARE GIVING IV FLUIDS ME A LOT". NURSE EXPLAINED THE INDICATIONS FOR MEDICATION STILL HE REFUSED MEDICINE AND IV FLUIDS TO BE ADMINISTERED. UNHOOKED MEDS PER REQUEST. SAID IF HE CAN TALK WITH HIS DOCTOR. DR. ALSTON MADE AWARE ABOUT PT'S REFUSAL OF MEDICATIONS AND THAT PT WANTS TO TALK WITH HIS DOCTOR. DOCTOR SAID SHE WILL TALK WITH THE PATIENT.
[2018-04-30 16:00] VITALS: BP 115/70
--- NOTE | 2018-04-30 17:02 | NUR ---
SEEN BY DR. JEFFERY. OK TO BE DISCHARGED PER DR. JEFFERY. PT AWARE.
[2018-04-30] MEDS ORDERED: METR250T2 PO (17:26)
[2018-04-30] MEDS ORDERED: LACT1.4C PO (17:27)
--- NOTE | 2018-04-30 19:20 | NUR ---
Patient discharged with v/s stable. Written and verbal after care instructions given and explained. Patient alert, oriented and verbalized understanding of instructions. Accompained by son and friend. All questions addressed prior to discharge. ID band removed. Patient advised to follow up with PMD. Rx of po metronedazole given. Patient educated on indication of medication including possible reaction and side effects. Opportunity to ask questions provided and answered. needed documents provided. Information provided about PCP visit. Pt verbalized understanding.
== END 2018-04-30 19:20 | disposition home or self-care (01) | DRG 137 ==
LOC: MED 22:42 → MTU 04-27 01:07
PROVIDERS: ADMIT General Practice; ATTEND General Practice
PROC: 02HV33Z Insertion of Infusion Device into Superior Vena Cava, Percutaneous Approach (ICD-10-PCS; principal; 2018-04-27)
PROC: B548ZZA Ultrasonography of Superior Vena Cava, Guidance (ICD-10-PCS; 2018-04-27)
DX: J69.0 Pneumonitis due to inhalation of food and vomit (principal); A04.72 Enterocolitis due to Clostridium difficile, not specified as recurrent; K74.60 Unspecified cirrhosis of liver; E83.42 Hypomagnesemia; E83.39 Other disorders of phosphorus metabolism; E87.1 Hypo-osmolality and hyponatremia; K52.9 Noninfective gastroenteritis and colitis, unspecified; E87.6 Hypokalemia; F19.10 Other psychoactive substance abuse, uncomplicated; K80.20 Calculus of gallbladder without cholecystitis without obstruction; Z87.891 Personal history of nicotine dependence; F11.10 Opioid abuse, uncomplicated; R31.9 Hematuria, unspecified
CPT/HCPCS: 36415; 71045; 76705; 76770; 80048; 80053; 80202; 80305; 81001; 82150; 83036; 83605; 83690; 83735; 83880; 84100; 84439; 84443; 84484; 85025; 85610; 85730; 86702; 87040; 87045; 87070; 87081; 87205; 93005; 96372; 97110; 99285; C1751; J1956; J2405; J3010; J3370; J3475; J3490; J7030; J7060; Q0092

== ENCOUNTER 2018-05-13 01:10 | Emergency (ER) | payer MEDICARE, MEDICAID ==
[~2018-05-13] VITALS: Ht 172.7 cm; Wt 68.0 kg
[~2018-05-13 01:10] MED LIST: LACT1.4C PO; METR250T2 PO
[2018-05-13 01:24] VITALS: BP 135/87
--- NOTE | 2018-05-13 01:40 | NUR ---
68/M CAME IN ED VIA WHEELCHAIR, C/O HAVING BACK PAIN THROUGHOUT, STOMACH PAIN, BLOATING, DECREASED APPETITE, BLE SWELLING. PT DENIES TRAUMA, FEVER, N/V/D. NO OBVIOUS ABNORMALITY ON BACK, TENDER TO TOUCH. PT WAS DISCHARGED 2 WEEKS AGO FOR C-DIFF. AOX4, INDEPENDENT WITH WHEELCHAIR. LUNG SOUNDS CLEAR BL. BS ACTIVE X4, ABD SOFT ROUND NONTENDER. HX CIRRHOSIS, HEROIN ABUSE, RIBS REMOVED
[2018-05-13] MEDS ORDERED: KETOROLAC 60 MG/2 ML VIAL IM ONE (02:00)
[2018-05-13 02:21] VITALS: BP 134/74
--- NOTE | 2018-05-13 02:33 | NUR ---
Patient discharged with v/s stable. Written and verbal after care instructions given and explained. Patient alert, oriented and verbalized understanding of instructions. Wheel Chair independent. All questions addressed prior to discharge. ID band removed. Patient advised to follow up with PMD. Rx of motrin, norco given. Patient educated on indication of medication including possible reaction and side effects. Opportunity to ask questions provided and answered.
== END 2018-05-13 02:21 | disposition home or self-care (01) ==
LOC: MED 01:10
DX: M54.5 Low back pain (principal); I10 Essential (primary) hypertension; F17.200 Nicotine dependence, unspecified, uncomplicated; Z79.899 Other long term (current) drug therapy
CPT/HCPCS: 81002; 96372; 99283; J1885

== ENCOUNTER 2018-05-23 20:43 | Emergency (ER) | payer MEDICARE, MEDICAID ==
[~2018-05-23] VITALS: Ht 170.2 cm; Wt 68.0 kg
[2018-05-23 20:45] VITALS: BP 124/73
--- NOTE | 2018-05-23 21:27 | NUR ---
PT WHEELCHAIRED TO ER BED 09 IN PERSONAL WHEELCHAIR
--- NOTE | 2018-05-23 21:27 | NUR ---
PT PRESENTS TO ED WITH ABD PAIN THROUGHOUT X4 QUADRANDS AND CONSTIPATION X1 WK. BOWEL SOUNDS PRESENT X4 QUADRANTS. WHEEL CHAIR BOUND. PT STATES INADEQUATE FLUID INTAKE. A&OX4. POSITIONED IN BED FOR COMFORT WITH VSS. ER MD AWARE. CONTINUE TO MONITOR.
--- NOTE | 2018-05-23 22:06 | NUR ---
Dr. Smallwood evaluating patient at bedside.
[2018-05-23 22:35] VITALS: BP 122/77
--- NOTE | 2018-05-23 22:35 | NUR ---
Patient discharged with v/s stable. Written and verbal after care instructions given and explained. Patient alert, oriented and verbalized understanding of instructions. Ambulatory with steady gait. All questions addressed prior to discharge. ID band removed. Patient advised to follow up with PMD. Rx of Metronidazole and Lactinex given. Patient educated on indication of medication including possible reaction and side effects. Opportunity to ask questions provided and answered.
== END 2018-05-23 22:35 | disposition home or self-care (01) ==
LOC: MED 20:43
DX: K57.92 Diverticulitis of intestine, part unspecified, without perforation or abscess without bleeding (principal); Z76.0 Encounter for issue of repeat prescription; I10 Essential (primary) hypertension; Z79.899 Other long term (current) drug therapy
CPT/HCPCS: 99283

== ENCOUNTER 2018-07-13 23:40 | Emergency (ER) | payer MEDICARE, MEDICAID ==
[~2018-07-13] VITALS: Ht 172.7 cm; Wt 59.0 kg
--- NOTE | 2018-07-13 23:50 | NUR ---
PATIENT BIB W/C TO ER BED 7.
[2018-07-13 23:58] VITALS: BP 150/90
--- NOTE | 2018-07-14 00:45 | NUR ---
ER AT BEDSIDE
--- NOTE | 2018-07-14 00:45 | NUR ---
68/M CAME IN ED, STATED THAT HE WAS REFERRED TO ER BY PCP TODAY. PT REPORTS HAVING C.DIFF THE PAST 2 MONTHS, PT REPORTS BEING ADMITTED FOR 3 WEEKS IN , PT HAS FINISHED RX FLAGYL. AOX4, WHEELCHAIR ASSISTED, RR EVEN AND UNLABORED. PT REPORTS DIFFUSE ABD PAIN. DENIES N/V/D. LBM TODAY. LUNG SOUNDS CLEAR BL. BS ACTIVE X4, ABD FIRM ROUND MILDLY TENDER TO TOUCH. TRACK ALEXANDRA WOUNDS NOTED ON BUE, WOUNDS WITH REDNESS, SWELLING AND SCARRING NOTED ON BUE. PT ADMITS TO IV DRUG USE YESTERDAY. HX RIB SURGERY, CIRRHOSIS, SUBSTANCE ABUSE, CURRENT SMOKER
[2018-07-14 02:25] LABS: BASOPHILS # (AUTO) 0.1 K/uL (0.00-0.22); BASOPHILS % (AUTO) 2.1 % (0.0-2.0); EOSINOPHILS # (AUTO) 0.4 K/uL (0-0.4); EOSINOPHILS % (AUTO) 6.7 % (0.0-4.0); HEMATOCRIT 42.4 % (36-52); HEMOGLOBIN 14.2 g/dL (12.0-18.0); LYMPHOCYTES % (AUTO) 35.8 % (20.5-51.1); MEAN CORPUSCULAR HEMOGLOBIN 32 pg (27-31); MEAN CORPUSCULAR HGB CONC 34 g/dL (33-37); MONOCYTES # (AUTO) 0.6 K/uL (0.8-1.0); MONOCYTES % (AUTO) 11.4 % (1.7-9.3); NEUTROPHILS # (AUTO) 2.4 K/uL (1.8-7.7); PLATELET COUNT (AUTO) 141 K/uL (140-450); RED BLOOD CELL COUNT(AUTO) 4.46 MIL/uL (4.20-6.10); RED CELL DISTRIBUTION WIDTH 14.2 % (11.6-13.7); WHITE BLOOD COUNT (AUTO) 5.5 K/uL (4.8-10.8)
[2018-07-14 02:44] LABS: ANION GAP 8.8 (8-16); POTASSIUM 3.8 mmol/L (3.5-5.1)
[2018-07-14 03:20] VITALS: BP 128/74
--- NOTE | 2018-07-14 03:20 | NUR ---
Patient discharged with v/s stable. Written and verbal after care instructions given and explained. Patient alert, oriented and verbalized understanding of instructions. Wheel Chair Assisted to car. All questions addressed prior to discharge. ID band removed. Patient advised to follow up with PMD. Rx of Bentyl given. Patient educated on indication of medication including possible reaction and side effects. Opportunity to ask questions provided and answered.
== END 2018-07-14 03:20 | disposition home or self-care (01) ==
LOC: MED 23:40
DX: R10.9 Unspecified abdominal pain (principal); I10 Essential (primary) hypertension; F17.200 Nicotine dependence, unspecified, uncomplicated; Z79.899 Other long term (current) drug therapy
CPT/HCPCS: 36415; 80048; 85025; 99284

== ENCOUNTER 2018-10-09 19:53 | Emergency (ER) | payer MEDICARE, MEDICAID ==
[~2018-10-09] VITALS: Ht 172.7 cm; Wt 59.0 kg
[2018-10-09 20:10] VITALS: BP 127/77
--- NOTE | 2018-10-09 20:16 | NUR ---
PT TRANSFERED TO BED 7 IN WHEEL CHAIR WITH VSS. PT WHEEL CHAIR BOUND.
--- NOTE | 2018-10-09 20:21 | NUR ---
PT C/O LEFT ANTERIOR LOWER LEG PAIN 9/10 PAIN X3 DAYS. STATES FALLING OUT OF BED AND HIT DRESSER. ANTERIOR LEFT LOWER LEG ABRASION, EDEMA, HEMATOMA, CMS INTACT DP PULSES PRESENT. VSS. WHEEL CHAIR BOUND.
[2018-10-09] MEDS ORDERED: SULFAMETH/TRIMETH DS 800/160MG 1 TAB PO ONE (21:00)
[2018-10-09] MEDS ORDERED: CEPHALEXIN 500 MG CAP PO ONE (21:00)
[2018-10-09] MEDS ORDERED: IBUPROFEN 600 MG TAB PO ONE (21:00)
[2018-10-09 21:15] VITALS: BP 125/75
--- NOTE | 2018-10-09 21:16 | NUR ---
Patient discharged with v/s stable. Written and verbal after care instructions given and explained. Patient alert, oriented and verbalized understanding of instructions. Ambulatory with steady gait. All questions addressed prior to discharge. ID band removed. Patient advised to follow up with PMD. Rx of KEFLEX AND BACTRIM given. Patient educated on indication of medication including possible reaction and side effects. Opportunity to ask questions provided and answered.
== END 2018-10-09 21:15 | disposition home or self-care (01) ==
LOC: MED 19:53
DX: L03.116 Cellulitis of left lower limb (principal); I10 Essential (primary) hypertension; F17.210 Nicotine dependence, cigarettes, uncomplicated; Z79.899 Other long term (current) drug therapy
CPT/HCPCS: 73590; 99284; Q0092

== ENCOUNTER 2018-11-29 23:57 | Emergency (ER) | payer MEDICARE, MEDICAID ==
[~2018-11-29] VITALS: Ht 172.7 cm; Wt 59.0 kg
[2018-11-30 00:15] VITALS: BP 118/69
--- NOTE | 2018-11-30 00:25 | NUR ---
68/M PRESENTS SELF TO ED VIA PERSONAL WHEELCHAIR, C/O BURNING DYSURIA X2 WEEKS. REPORTS MILD SUPRAPUBIC PAIN. REPORTS DIARRHEA THAT HAS SINCE RESOLVED. PT DENIES FEVER, N/V, CONSTIPATION. AOX4, RR EVEN AND UNLABORED. HX CONSTIPATION, "RIBS TAKEN OFF" RX TRAMADOL; OTC PEPTOBISMOL
[2018-11-30 02:07] VITALS: BP 129/76
--- NOTE | 2018-11-30 02:07 | NUR ---
Patient discharged with v/s stable. Written and verbal after care instructions given and explained. Patient alert, oriented and verbalized understanding of instructions. Wheel Chair self with own personal wheelchair. All questions addressed prior to discharge. ID band removed. Patient advised to follow up with PMD. Rx of FLOMAX, MIRALAX, CIPRO, MOTRIN given. Patient educated on indication of medication including possible reaction and side effects. Opportunity to ask questions provided and answered.
== END 2018-11-30 02:05 | disposition home or self-care (01) ==
LOC: MED 23:57
DX: N39.0 Urinary tract infection, site not specified (principal); I10 Essential (primary) hypertension; F17.200 Nicotine dependence, unspecified, uncomplicated; Z79.899 Other long term (current) drug therapy
CPT/HCPCS: 81002; 99283

== ENCOUNTER 2018-12-18 21:03 | Emergency (ER) | payer MEDICARE, MEDICAID ==
[~2018-12-18] VITALS: Ht 167.6 cm; Wt 59.0 kg
[2018-12-18 21:15] VITALS: BP 123/78
--- NOTE | 2018-12-18 22:15 | NUR ---
PT W/C ASSISTED TO BED 3.
--- NOTE | 2018-12-18 22:16 | NUR ---
PATIENT BIB W/C TO ER BED 3.
--- NOTE | 2018-12-18 22:16 | NUR ---
PT PRESENTS TO ED WITH CHRONIC BACK PAIN TO THORACIC, LUMBAR, AND SACRUM. 8/10 PAIN. CMS INTACT BILAT LOWER EXTREMITIES. VSS. POSITIONED IN BED FOR COMFORT. WHEEL CHAIR ASSISTED SELF TO BED. ER MD AWARE. SIDE RAIL UP. CONTINUE TO MONITOR.
[2018-12-18] MEDS ORDERED: NACL 0.9% 1,000 ML IV ONE (23:00)
[2018-12-18] MEDS ORDERED: KETOROLAC 30 MG/ML VIAL IVP ONE (23:00)
--- NOTE | 2018-12-18 23:08 | NUR ---
EKG PERFORMED AT BEDSIDE WITH RN PRESENT. PT COVERED IN GOWN DURING PROCEDURE
[2018-12-18 23:29] LABS: BASOPHILS # (AUTO) 0.1 K/uL (0.00-0.22); EOSINOPHILS # (AUTO) 0.6 K/uL (0-0.4); EOSINOPHILS % (AUTO) 9.8 % (0.0-4.0); HEMATOCRIT 40.9 % (36-52); HEMOGLOBIN 13.7 g/dL (12.0-18.0); LYMPHOCYTES # (AUTO) 2.4 K/uL (2.0-11.5); MEAN CORPUSCULAR HEMOGLOBIN 32 pg (27-31); MEAN CORPUSCULAR HGB CONC 34 g/dL (33-37); MEAN CORPUSCULAR VOLUME 96.3 fL (80-94); MONOCYTES # (AUTO) 0.5 K/uL (0.8-1.0); MONOCYTES % (AUTO) 8.7 % (1.7-9.3); NEUTROPHILS # (AUTO) 2.1 K/uL (1.8-7.7); NEUTROPHILS % (AUTO) 37.5 % (42.2-75.2); PLATELET COUNT (AUTO) 121 K/uL (140-450); RED BLOOD CELL COUNT(AUTO) 4.24 MIL/uL (4.20-6.10); RED CELL DISTRIBUTION WIDTH 14.3 % (11.6-13.7); WHITE BLOOD COUNT (AUTO) 5.6 K/uL (4.8-10.8)
[2018-12-18 23:41] LABS: ANION GAP 10.2 (8-16); CARBON DIOXIDE 25.3 mmol/L (21-32); CREATININE 0.9 mg/dL (0.7-1.3); POTASSIUM 3.5 mmol/L (3.5-5.1)
[2018-12-18 23:47] LABS: ALBUMIN 2.8 g/dL (3.4-5.0); TOTAL BILIRUBIN 0.7 mg/dL (0.0-1.0)
[2018-12-19 00:23] VITALS: BP 123/78
--- NOTE | 2018-12-19 00:23 | NUR ---
DISCHARGE PAPERWORK GIVEN TO PT. 0/10 PAIN. A&OX4. VSS. RX FOR NAPROSYN GIVEN. SIDE EFFECTS GIVEN. PROVIDED WITH FOOD, BUSPASS, WHEATHER APPROPRIATE CLOTHING. PT VERBALLIZED UNDERSTANDING OF DC INSTRUCTIONS. ALL QUESTIONS ANSWERED.
--- NOTE | 2018-12-21 07:40 | NUR ---
Late entry. Confirmed with RN that 1000 ml 0.9 NS IV bouls completed at 0020
== END 2018-12-19 00:23 | disposition home or self-care (01) ==
LOC: MED 21:03
DX: G89.29 Other chronic pain (principal); M54.9 Dorsalgia, unspecified; M79.10 Myalgia, unspecified site; I10 Essential (primary) hypertension; Z79.899 Other long term (current) drug therapy
CPT/HCPCS: 36415; 71045; 80053; 82550; 82553; 83690; 84484; 85025; 93005; 96374; 99284; J1885; J7030; Q0092

== ENCOUNTER 2019-06-12 14:45 | Emergency (ER) | payer MEDICARE, MEDICAID ==
[~2019-06-12] VITALS: Ht 172.7 cm; Wt 59.0 kg
[2019-06-12 15:03] VITALS: BP 108/66
--- NOTE | 2019-06-12 18:00 | NUR ---
C/O BACK PAIN 06/15 & WEAKNESS X1 WEEK. PT STATES " I THINK I HAVE A BLOOD INFECTION." DENIES N/V/D/FEVER. PT IN WHEELCHAIR. DENIES RECENT TRUAMA OR INJURY. NO OBVIOUS DEFORMITIES. VSS. ALERT AND AWAKE. BED IS DOWN, LOCKED, BED RAIL X 1, ERMD TO SEE PT. HX: "3 RIBS REMOVED" RX: DENIES
[2019-06-12 18:02] VITALS: BP 125/74
--- NOTE | 2019-06-12 18:02 | NUR ---
VSS AT THIS TIME. PT ALERT AND AWAKE.
--- NOTE | 2019-06-12 19:13 | NUR ---
REPORT GIVEN TO MEGHANA SANTORO
--- NOTE | 2019-06-12 19:45 | NUR ---
PATIENT LEFT WITHOUT BEING SEEN BY DR. DILL. NO FURTHER CARE PROVIDED FOR PATIENT.
--- NOTE | 2019-06-12 19:45 | NUR ---
Brennon garcia in [facility] - 06/12/19 at 2006 by REA PATIENT ELOPED FROM FACILITY. DISCHARGE INSTRUCTIONS NOT GIVEN TO PATIENT. DR. DILL NOTIFIED.
== END 2019-06-12 19:45 | disposition left against medical advice (07) ==
LOC: MED 14:45
DX: M54.9 Dorsalgia, unspecified (principal); R53.1 Weakness; Z53.21 Procedure and treatment not carried out due to patient leaving prior to being seen by health care provider

== ENCOUNTER 2020-04-19 23:52 | Emergency (ER) | payer MEDICARE, MEDICAID ==
[~2020-04-19] VITALS: Ht 172.7 cm; Wt 72.6 kg
[2020-04-20] VITALS: BP 141/76
--- NOTE | 2020-04-20 | NUR ---
PT TAKEN TO ER BED 12 VIA W/C
--- NOTE | 2020-04-20 00:10 | NUR ---
Brennon garcia in [facility] - 04/20/20 at 0107 by DANIA PT TAKEN TO ER BED 12 VIA W/C
--- NOTE | 2020-04-20 00:10 | NUR ---
70 Y/O MALE PRESENTED TO ED C/O CONSTIPATION . PT LBM 04/22/20 AND PT STATES IT WAS "NORMAL." PT DENIES ANY PAIN DURING BOWEL MOVEMENT, DENIES HEMATOCHEZIA. PT STATES HE RAN OUT OF STOOL SOFTENER AND WANTED TO GET ANOTHER RX. PT ABD FLAT, SOFT AND NON TENDER. PT DENIES ANY ABD PAIN. PT AT BEDSIDE SITTING IN PERSONAL W/C. RR EVEN AND UNLABORED, A/O X4. VSS PMH: DENIES NKA
== END 2020-04-20 01:04 | disposition home or self-care (01) ==
LOC: MED 23:52
DX: K59.00 Constipation, unspecified (principal); I10 Essential (primary) hypertension; Z79.899 Other long term (current) drug therapy
CPT/HCPCS: 99281; 99282